=== PATIENT | male | born 1995 | race American Indian/Alaskan Native ===

== ENCOUNTER 2016-11-28 22:14 | Emergency (ER) | payer SELFPAY ==
[2016-11-28 22:28] VITALS: BP 153/89
[2016-11-28] MEDS ORDERED: PROVENTIL IH ONE (23:03)
== END 2016-11-29 06:52 | disposition left against medical advice (07) ==
LOC: ED 22:14
DX: J45.909 Unspecified asthma, uncomplicated (principal); Z53.21 Procedure and treatment not carried out due to patient leaving prior to being seen by health care provider
CPT/HCPCS: 93005; 93010; 94640

== ENCOUNTER 2016-11-29 11:09 | Emergency (ER) | payer SELFPAY ==
[2016-11-29 11:51] VITALS: BP 135/90
--- NOTE | 2016-11-29 14:01 | Emergency Department Report ---
ED General Adult HPI - General Chief complaint: Adult Asthma Stated complaint: ASTHMA/WHEEZING Time Seen by Provider: 11/29/16 13:53 Source: patient, RN notes reviewed Mode of arrival: Ambulatory Limitations: No Limitations - History of Present Illness Initial comments: PT states he has had asthma exacerbation x 2 days. PT states he came to ED last night and left after getting nebulizer treatment because he felt better. PT states he has a rescue inhaler at home but he still feels tight after using it. PT asking for an RX for Prednisone. PT has had previous admissions for asthma but denies previous intubations MD Complaint: asthma -: Gradual Location: chest Associated Symptoms: cough. denies: fever/chills, nausea/vomiting - Related Data Previous Rx's Medication Instructions Recorded Last Taken Type Albuterol Sulfate [Ventolin HFA] 2 puff IH Q4H PRN #1 hfa.aer.ad 11/29/16 Unknown Rx Prednisone [predniSONE 5 mg (6-Day 5 mg PO .TAPER #1 tab.ds.pk 11/29/16 Unknown Rx Pack, 21 Tabs)] Allergies Allergy/AdvReac Type Severity Reaction Status Date / Time bee pollen AdvReac Unknown Verified 11/29/16 11:51 ED Review of Systems ROS: Stated complaint: ASTHMA/WHEEZING Other details as noted in HPI Comment: All other systems reviewed and negative ENT: denies: throat pain Respiratory: cough, shortness of breath (improved last night after neb but still feels tight ), wheezing Gastrointestinal: denies: nausea, vomiting ED Past Medical Hx - Past Medical History Previous Medical History?: Yes Hx Asthma: Yes - Social History Smoking Status: Never Smoker Substance Use Type: Prescribed - Medications Home Medications: Home Medications Medication Instructions Recorded Confirmed Last Taken Type Albuterol Sulfate [Ventolin HFA] 2 puff IH Q4H PRN #1 hfa.aer.ad 11/29/16 Unknown Rx Prednisone [predniSONE 5 mg (6-Day 5 mg PO .TAPER #1 tab.ds.pk 11/29/16 Unknown Rx Pack, 21 Tabs)] ED Physical Exam - General Limitations: No Limitations General appearance: alert, in no apparent distress - Head Head exam: Present: atraumatic, normocephalic - Eye Eye exam: Present: normal appearance. Absent: conjunctival injection - ENT ENT exam: Present: normal exam, normal orophraynx, mucous membranes moist, TM's normal bilaterally, normal external ear exam - Neck Neck exam: Present: normal inspection, full ROM. Absent: lymphadenopathy - Respiratory Respiratory exam: Present: normal lung sounds bilaterally. Absent: respiratory distress, rhonchi, accessory muscle use, decreased breath sounds - Cardiovascular Cardiovascular Exam: Present: regular rate, normal rhythm, normal heart sounds - Extremities Exam Extremities exam: Present: normal inspection - Back Exam Back exam: Present: normal inspection, full ROM. Absent: tenderness, CVA tenderness (R), CVA tenderness (L) - Neurological Exam Neurological exam: Present: alert, oriented X3 - Psychiatric Psychiatric exam: Present: normal affect, normal mood - Skin Skin exam: Present: warm, dry, intact ED Course Vital Signs 11/29/16 11:47 Temperature 98.4 F Pulse Rate 55 L Respiratory 16 Rate Blood Pressure 135/90 O2 Sat by Pulse 100 Oximetry - Reevaluation(s) Reevaluation #1: 11/29/16 14:02 PT here for asthma exacerbation. PT not actively wheezing or sob. PT stable for outpt follow up - Pulse Oximetry Interpretation Digit-Finger Initial Pulse Oximetry Readin Actions Taken: none ED Medical Decision Making - Differential Diagnosis wheezing, asthma Critical care attestation.: If time is entered above; I have spent that time in minutes in the direct care of this critically ill patient, excluding procedure time. ED Disposition Clinical Impression: Asthma exacerbation, mild Disposition: DISCHARGED TO HOME OR SELFCARE Is pt being admited?: No Does the pt Need Aspirin: No Condition: Stable Instructions: Asthma (ED) Referrals: PRIMARY MD COLE [Primary Care Provider] - 3-5 Days LEDA BLAIR MD [Staff Physician] - 3-5 Days Forms: Work/School Release Form(ED) Time of Disposition: 14:04
== END 2016-11-29 14:32 | disposition home or self-care (01) ==
LOC: ED 11:09
DX: J45.901 Unspecified asthma with (acute) exacerbation (principal); Z91.09 Other allergy status, other than to drugs and biological substances
CPT/HCPCS: 99282

== ENCOUNTER 2016-12-25 08:25 | Emergency (ER) | payer SELFPAY ==
[2016-12-25] MEDS ORDERED: CLARITIN PO ONE (08:51)
[2016-12-25] MEDS ORDERED: DELTASONE PO ONE (08:51)
--- NOTE | 2016-12-25 08:55 | Emergency Department Report ---
HPI - General Chief Complaint: Adult Asthma Time Seen by Provider: 12/25/16 08:43 - HPI HPI: 21-year-old female with a history of asthma presents to ED stating he's had some wheezing and needs a refill on his asthma medications. Patient states his asthma flareups usually happen around theses into to the pollen allergies. Patient states he is out of his medication and needs a refill. Patient denies fever assess chills/nausea/vomiting/coughing/chest pain/ shortness of breath/dizziness or any other problems. ED Past Medical Hx - Past Medical History Previous Medical History?: Yes Hx Asthma: Yes - Surgical History Past Surgical History?: No - Social History Smoking Status: Never Smoker Substance Use Type: Prescribed, Other - Medications Home Medications: Home Medications Medication Instructions Recorded Confirmed Last Taken Type Albuterol Sulfate [Ventolin HFA] 2 puff IH Q4H PRN #1 hfa.aer.ad 12/25/16 Unknown Rx Cetirizine HCl [ZyrTEC] 10 mg PO DAILY #30 tab.rapdis 12/25/16 Unknown Rx Prednisone [predniSONE 5 mg (6-Day 5 mg PO .TAPER #1 tab.ds.pk 12/25/16 Unknown Rx Pack, 21 Tabs)] ED Review of Systems ROS: Stated complaint: CHEST PRESSURE /WEEZING/ASTHMA Other details as noted in HPI Constitutional: denies: chills, fever Eyes: denies: eye pain, eye discharge, vision change ENT: denies: ear pain, throat pain, dental pain, hearing loss Respiratory: denies: cough, shortness of breath, wheezing Cardiovascular: denies: chest pain, palpitations Endocrine: no symptoms reported. denies: flushing Gastrointestinal: denies: abdominal pain, nausea, vomiting, diarrhea, constipation, hematemesis Genitourinary: denies: urgency, dysuria Musculoskeletal: denies: back pain, joint swelling, arthralgia Skin: denies: rash, lesions, change in color, pruritus Neurological: denies: headache, weakness, numbness, paresthesias, confusion Psychiatric: denies: anxiety, depression Hematological/Lymphatic: denies: easy bleeding, easy bruising Physical Exam - Physical Exam Vital Signs: Vital Signs 12/25/16 08:33 Temperature 97.8 F Pulse Rate 70 Respiratory 18 Rate Blood Pressure 130/91 O2 Sat by Pulse 100 Oximetry Physical Exam: GENERAL: Alert and oriented x3, no apparent distress, Normal Gait, atraumatic. HEAD: Head is normocephalic and a-traumatic. NOSE: Nose symetrical, Nontender,Nares appeared normal. MOUTH:Mouth is well hydrated and without lesions. Patent airways. NECK: Supple. Non edematous, No carotid bruits. No lymphadenopathy or thyromegaly. LUNGS: Symetrical with respiration, mild expiratory wheezing heard bilaterally, no rales or crackles, CTAB. No use of java application developer muscles. Patient is not in respiratory distress. HEART: S1, S2 present, regular rate and rhythm without murmur, no rubs, no gallops. ABDOMEN: No organomegaly was noted,Positive bowel sounds, soft, and non- distended. Nontender to palpation on all Quadrants, NO CVA tenderness EXTREMITIES/MUSCULOSKELETAL: No cyanosis, clubbing, rash, lesions or edema. SKIN: Warm and dry, No lesions, No ulceration or induration present. ED Course Vital Signs 12/25/16 08:33 Temperature 97.8 F Pulse Rate 70 Respiratory 18 Rate Blood Pressure 130/91 O2 Sat by Pulse 100 Oximetry ED Medical Decision Making - Medical Decision Making 21-year-old male presents to the ED for indication refill. ED course: Patient received 60 mg of prednisone ED. Patient is alert and oriented 3. Vital signs are stable. Patient is satting at 100% She is in no acute over sensory distress. Discussed the patient will fill his medication and he needs to follow-up with primary care physician. Discussed the patient will follow-up as referred. Critical care attestation.: If time is entered above; I have spent that time in minutes in the direct care of this critically ill patient, excluding procedure time. ED Disposition Clinical Impression: Asthma due to environmental allergies, History of asthma Disposition: DISCHARGED TO HOME OR SELFCARE Is pt being admited?: No Does the pt Need Aspirin: No Condition: Stable Instructions: Asthma (ED), Reactive Airways Disease (ED) Prescriptions: Albuterol Sulfate [Ventolin HFA] 2 puff IH Q4H PRN #1 hfa.aer.ad PRN Reason: Shortness Of Breath Cetirizine HCl [ZyrTEC] 10 mg PO DAILY #30 tab.rapdis Prednisone [predniSONE 5 mg (6-Day Pack, 21 Tabs)] 5 mg PO .TAPER #1 tab.ds.pk Referrals: PRIMARY CARE, [Primary Care Provider] - 3-5 Days LEO BO MD [Referring] - 3-5 Days LEONELA VIRGEN MD [Referring] - 3-5 Days [facility] [Outside] - 3-5 Days [facility] [Outside] - 3-5 Days Forms: Work/School Release Form(ED) Time of Disposition: 09:01
[2016-12-25 09:14] VITALS: BP 126/86
== END 2016-12-25 09:13 | disposition home or self-care (01) ==
LOC: ED 08:25
DX: J45.909 Unspecified asthma, uncomplicated (principal)
CPT/HCPCS: 99282; J7512

== ENCOUNTER 2017-10-29 18:34 | Emergency (ER) | payer SELFPAY ==
[2017-10-29] MEDS ORDERED: TYLENOL PO ONE (18:46)
[2017-10-29] MEDS ORDERED: DUONEB *Not for PRN Use IH ONE ×3 (18:46→22:52)
[2017-10-29] MEDS ORDERED: DELTASONE PO ONE (18:46)
[2017-10-29] MEDS ORDERED: DELTASONE ONE (18:47)
[2017-10-29] MEDS ORDERED: TYLENOL ONE (18:47)
[2017-10-29] MEDS ORDERED: TESSALON PERLES PO ONE (22:10)
[2017-10-29] MEDS ORDERED: MOTRIN PO ONE (22:10)
--- NOTE | 2017-10-29 22:58 | XRay Report ---
FINAL REPORT PROCEDURE: XR CHEST ROUTINE 2V TECHNIQUE: PA and lateral chest radiographs were obtained. CPT 35014 HISTORY: cough COMPARISON: No prior studies are available for comparison. FINDINGS: Heart: Normal size. Mediastinum/Vessels: Normal. Lungs/Pleural space: Normal. Bony thorax: No acute osseous abnormality. Other: IMPRESSION: Negative examination.
--- NOTE | 2017-10-29 23:21 | Emergency Department Report ---
ED Asthma HPI - General Chief Complaint: Adult Asthma Stated Complaint: ASTHMA Time Seen by Provider: 10/29/17 22:06 Source: patient Mode of arrival: Ambulatory Limitations: No Limitations - History of Present Illness Initial Comments: This is a 22-year-old male nontoxic, well nourished in appearance, no acute signs of distress presents to the ED with c/o of wheezing and "asthma exacerbation" x3 days. Patient denies any cough, chest pain, shortness of breath , fever, chills, nausea, vomiting, headache, stiff neck, abdominal pain, numbness or tingling. She denies taking anything for asthma exacerbation. Patient stated as allergies to pollen. Denies any recent travels, long car rides, recent hospital stays. Patient denies any calf pain or calf tenderness. Past medical history includes asthma. MD Complaint: "asthma attack", wheezing -: days(s) (3) Asthma History: childhood onset Severity: mild Context: none known Associated Symptoms: none - Related Data Current Asthma Therapy: none Previous Rx's Medication Instructions Recorded Last Taken Type Albuterol Sulfate [Ventolin HFA] 2 puff IH Q4H PRN #1 hfa.aer.ad 12/25/16 Unknown Rx Cetirizine HCl [ZyrTEC] 10 mg PO DAILY #30 tab.rapdis 12/25/16 Unknown Rx Prednisone [predniSONE 5 mg (6-Day 5 mg PO .TAPER #1 tab.ds.pk 12/25/16 Unknown Rx Pack, 21 Tabs)] ALBUTEROL Inhaler [ProAir HFA 2 puff IH QID PRN #1 inhalation 10/29/17 Unknown Rx Inhaler] predniSONE [Deltasone] 40 mg PO QDAY #5 tab 10/29/17 Unknown Rx Allergies Allergy/AdvReac Type Severity Reaction Status Date / Time pollen extracts Allergy Shortness Verified 10/29/17 18:39 of Breath ED Review of Systems ROS: Stated complaint: ASTHMA Other details as noted in HPI Constitutional: denies: chills, fever Eyes: denies: eye pain, eye discharge, vision change ENT: denies: ear pain, throat pain Respiratory: wheezing. denies: cough, shortness of breath Cardiovascular: denies: chest pain, palpitations Endocrine: no symptoms reported Gastrointestinal: denies: abdominal pain, nausea, diarrhea Genitourinary: denies: urgency, dysuria Musculoskeletal: denies: back pain, joint swelling, arthralgia Skin: denies: rash, lesions Neurological: denies: headache, weakness, paresthesias Psychiatric: denies: anxiety, depression Hematological/Lymphatic: denies: easy bleeding, easy bruising ED Past Medical Hx - Past Medical History Previous Medical History?: Yes Hx Asthma: Yes - Surgical History Past Surgical History?: No - Social History Smoking Status: Never Smoker Substance Use Type: None - Medications Home Medications: Home Medications Medication Instructions Recorded Confirmed Last Taken Type Albuterol Sulfate [Ventolin HFA] 2 puff IH Q4H PRN #1 hfa.aer.ad 12/25/16 Unknown Rx Cetirizine HCl [ZyrTEC] 10 mg PO DAILY #30 tab.rapdis 12/25/16 Unknown Rx Prednisone [predniSONE 5 mg (6-Day 5 mg PO .TAPER #1 tab.ds.pk 12/25/16 Unknown Rx Pack, 21 Tabs)] ALBUTEROL Inhaler [ProAir HFA 2 puff IH QID PRN #1 inhalation 10/29/17 Unknown Rx Inhaler] predniSONE [Deltasone] 40 mg PO QDAY #5 tab 10/29/17 Unknown Rx ED Physical Exam - General Limitations: No Limitations General appearance: alert, in no apparent distress - Head Head exam: Present: atraumatic, normocephalic - Eye Eye exam: Present: normal appearance, PERRL, EOMI Pupils: Present: normal accommodation - ENT ENT exam: Present: normal exam, normal orophraynx, mucous membranes moist, TM's normal bilaterally, normal external ear exam - Neck Neck exam: Present: normal inspection, full ROM. Absent: tenderness, meningismus, lymphadenopathy, thyromegaly - Respiratory Respiratory exam: Present: normal lung sounds bilaterally, wheezes (bilateral upper and lower lobes). Absent: respiratory distress, rales, rhonchi, stridor, chest wall tenderness, accessory muscle use, decreased breath sounds, prolonged expiratory - Cardiovascular Cardiovascular Exam: Present: regular rate, normal rhythm, normal heart sounds. Absent: irregular rhythm, systolic murmur, diastolic murmur, rubs, gallop - GI/Abdominal GI/Abdominal exam: Present: soft, normal bowel sounds. Absent: distended, tenderness, guarding, rebound, rigid, diminished bowel sounds - Rectal Rectal exam: Present: deferred - Extremities Exam Extremities exam: Present: normal inspection, full ROM, normal capillary refill. Absent: tenderness, pedal edema, joint swelling, calf tenderness - Back Exam Back exam: Present: normal inspection, full ROM. Absent: tenderness, CVA tenderness (R), CVA tenderness (L), muscle spasm, paraspinal tenderness, vertebral tenderness, rash noted - Neurological Exam Neurological exam: Present: alert, oriented X3, CN II-XII intact, normal gait, reflexes normal - Psychiatric Psychiatric exam: Present: normal affect, normal mood - Skin Skin exam: Present: warm, dry, intact, normal color. Absent: rash ED Course Vital Signs 10/29/17 10/29/17 18:39 22:40 Temperature 99.8 F H Pulse Rate 118 H Respiratory 20 18 Rate Blood Pressure 120/83 O2 Sat by Pulse 96 Oximetry - Reevaluation(s) Reevaluation #1: 10/29/17 23:21 Patient is speaking in full sentences with no signs of distress noted. Reevaluation #2: 10/29/17 23:24 Post eval of medical treatment: No wheezing noted. Patient is talking with no signs of distress. ED Medical Decision Making - Medical Decision Making This is a 22-year-old male that presents with asthma exacerbation. Patient is stable and was examined by me. Chest x-ray has been obtained and dictated the radiologist with normal exam. Patient is notified of x-ray results neck was noted by the patient. Patient received DuoNeb and prednisone prior to interview which patient states symptoms of wheezing has subsided. Post medical treatment and assessment; wheezing has subsided. Patient is discharged with albuterol, prednisone. Vitals signs stable prior to discharge. Patient was instructed Follow-up with a primary care doctor in 3-5 days or if symptoms worsen and continue return to emergency room as soon as possible. At time of discharge, the patient does not seem toxic or ill in appearance. No acute signs of distress noted. Patient agrees to discharge treatment plan of care. No further questions noted by the patient. Critical care attestation.: If time is entered above; I have spent that time in minutes in the direct care of this critically ill patient, excluding procedure time. ED Disposition Clinical Impression: Asthma exacerbation Qualifiers: Asthma severity: mild Asthma persistence: unspecified Qualified Code(s): J45.901 - Unspecified asthma with (acute) exacerbation Disposition: DC-01 TO HOME OR SELFCARE Is pt being admited?: No Does the pt Need Aspirin: No Condition: Stable Instructions: Asthma (ED), Prednisone (By mouth), Albuterol (By breathing) Additional Instructions: Follow-up with a primary care doctor in 3-5 days or if symptoms worsen and continue return to emergency room as soon as possible. Prescriptions: ALBUTEROL Inhaler [ProAir HFA Inhaler] 2 puff IH QID PRN #1 inhalation PRN Reason: Shortness Of Breath predniSONE [Deltasone] 40 mg PO QDAY #5 tab Referrals: PRIMARY CARE, [Primary Care Provider] - 3-5 Days ALEKSANDAR BANKS MD [Staff Physician] - 3-5 Days [facility] [Outside] - 3-5 Days [facility] [Outside] - 3-5 Days Forms: Work/School Release Form(ED)
[2017-10-29 23:24] VITALS: BP 111/71
== END 2017-10-29 23:55 | disposition home or self-care (01) ==
LOC: ED 18:34
DX: J45.901 Unspecified asthma with (acute) exacerbation (principal)
CPT/HCPCS: 71046; 94640; 99283; J7512

== ENCOUNTER 2017-12-24 14:25 | Emergency (ER) | payer SELFPAY ==
[2017-12-24 14:32] VITALS: BP 134/87
--- NOTE | 2017-12-24 19:16 | Emergency Department Report ---
ED Allergic Reaction HPI - General Chief complaint: Upper Respiratory Infection Stated complaint: ALLERGIES AND WORK NOTE Time Seen by Provider: 12/24/17 18:50 Source: patient Mode of arrival: Ambulatory Limitations: No Limitations - History of Present Illness Initial Comments: Is a 22-year-old -[place] male who is having allergic reaction to pollen. Patient states he suffers from seasonal allergies. 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 MD Complaint: allergic reaction - Related Data Previous Rx's Medication Instructions Recorded Last Taken Type Albuterol Sulfate [Ventolin HFA] 2 puff IH Q4H PRN #1 hfa.aer.ad 12/25/16 Unknown Rx Cetirizine HCl [ZyrTEC] 10 mg PO DAILY #30 tab.rapdis 12/25/16 Unknown Rx Prednisone [predniSONE 5 mg (6-Day 5 mg PO .TAPER #1 tab.ds.pk 12/25/16 Unknown Rx Pack, 21 Tabs)] ALBUTEROL Inhaler [ProAir HFA 2 puff IH QID PRN #1 inhalation 10/29/17 Unknown Rx Inhaler] predniSONE [Deltasone] 40 mg PO QDAY #5 tab 10/29/17 Unknown Rx Allergies Allergy/AdvReac Type Severity Reaction Status Date / Time pollen extracts Allergy Shortness Verified 12/24/17 14:29 of Breath ED Review of Systems ROS: Stated complaint: ALLERGIES AND WORK NOTE Other details as noted in HPI Comment: All other systems reviewed and negative ED Past Medical Hx - Past Medical History Hx Asthma: Yes - Social History Smoking Status: Never Smoker Substance Use Type: None - Medications Home Medications: Home Medications Medication Instructions Recorded Confirmed Last Taken Type Albuterol Sulfate [Ventolin HFA] 2 puff IH Q4H PRN #1 hfa.aer.ad 12/25/16 Unknown Rx Cetirizine HCl [ZyrTEC] 10 mg PO DAILY #30 tab.rapdis 12/25/16 Unknown Rx Prednisone [predniSONE 5 mg (6-Day 5 mg PO .TAPER #1 tab.ds.pk 12/25/16 Unknown Rx Pack, 21 Tabs)] ALBUTEROL Inhaler [ProAir HFA 2 puff IH QID PRN #1 inhalation 10/29/17 Unknown Rx Inhaler] predniSONE [Deltasone] 40 mg PO QDAY #5 tab 10/29/17 Unknown Rx ED Physical Exam - General Limitations: No Limitations General appearance: alert, in no apparent distress - Head Head exam: Present: atraumatic, normocephalic - Eye Eye exam: Present: conjunctival injection - ENT ENT exam: Present: mucous membranes moist - Neck Neck exam: Present: normal inspection - Respiratory Respiratory exam: Present: normal lung sounds bilaterally. Absent: respiratory distress, wheezes, rales, rhonchi - Cardiovascular Cardiovascular Exam: Present: regular rate, normal rhythm. Absent: systolic murmur, diastolic murmur, rubs, gallop - GI/Abdominal GI/Abdominal exam: Present: soft, normal bowel sounds - Rectal Rectal exam: Present: deferred - Extremities Exam Extremities exam: Present: normal inspection - Back Exam Back exam: Present: normal inspection - Neurological Exam Neurological exam: Present: alert, oriented X3 - Psychiatric Psychiatric exam: Present: normal affect, normal mood - Skin Skin exam: Present: warm, dry, intact, normal color. Absent: rash ED Course Vital Signs 12/24/17 14:29 Temperature 98.8 F Pulse Rate 99 H Respiratory 18 Rate Blood Pressure 134/87 O2 Sat by Pulse 100 Oximetry ED Medical Decision Making - Medical Decision Making Patient did not medical emergency and has been given advise on [id number] meds. Critical care attestation.: If time is entered above; I have spent that time in minutes in the direct care of this critically ill patient, excluding procedure time. ED Disposition Clinical Impression: Allergic rhinitis Qualifiers: Allergic rhinitis trigger: pollen Allergic rhinitis seasonality: seasonal Qualified Code(s): J30.1 - Allergic rhinitis due to pollen Disposition: MED SCREENING EXAM-LEFT Is pt being admited?: No Condition: Good Referrals: VASILIY HUBBARD MD [Referring] - 3-5 Days
== END 2017-12-24 19:24 | disposition left against medical advice (07) ==
LOC: ED 14:25
DX: J30.9 Allergic rhinitis, unspecified (principal); Z88.8 Allergy status to other drugs, medicaments and biological substances
CPT/HCPCS: 99282

== ENCOUNTER 2018-01-05 21:55 | Emergency (ER) | payer SELFPAY ==
[2018-01-05 22:23] VITALS: BP 131/85
[2018-01-05] MEDS ORDERED: DUONEB *Not for PRN Use IH ONE ×2 (22:51→23:21)
[2018-01-05] MEDS ORDERED: DELTASONE PO ONE (23:21)
--- NOTE | 2018-01-06 02:37 | Emergency Department Report ---
Minor Respiratory - HPI Chief Complaint: Adult Asthma Stated Complaint: ASTHMA,CHEST PAIN Time Seen by Provider: 01/06/18 02:25 Duration: Today Pain Location: Other (no pain) Minor Respiratory: Yes Rhinorrhea (nasal congestion), Yes Able to Tolerate Fluids, Yes Cough (dry cough), No Sore Throat, No Ear Pain, No Sick Contacts, No Hemoptysis, No Chest Pain, No Shortness of Breath, No Fever (chills) Other History: Patient complains cerebrovascular asthma today. He reports that he does not have albuterol inhaler and he won't be able to get in until Friday when he gets pain. He said he is having coughing and wheezing but denies any shortness of breath or chest pain. He reports that since the pollen has been crying he's been having runny nose and congestion and has been taking over-the- counter medication which is not helping. Patient does not have a primary care physician. Denies any nausea or vomiting. He said he feels hot and cold sometimes but no fever. ED Review of Systems ROS: Stated complaint: ASTHMA,CHEST PAIN Other details as noted in HPI Comment: All other systems reviewed and negative Constitutional: chills. denies: fever Eyes: denies: eye pain, eye discharge ENT: congestion. denies: ear pain, throat pain, epistaxis Respiratory: cough, wheezing. denies: orthopnea, shortness of breath, SOB with exertion, SOB at rest, stridor Cardiovascular: denies: chest pain, palpitations, dyspnea on exertion, orthopnea , edema, syncope, paroxysmal nocturnal dyspnea Gastrointestinal: denies: abdominal pain, nausea, vomiting Musculoskeletal: denies: back pain, joint swelling, arthralgia, myalgia Skin: denies: rash Neurological: denies: headache ED Past Medical Hx - Past Medical History Previous Medical History?: Yes Hx Asthma: Yes - Surgical History Past Surgical History?: No - Family History Family history: no significant - Social History Smoking Status: Never Smoker Substance Use Type: None - Medications Home Medications: Home Medications Medication Instructions Recorded Confirmed Last Taken Type Prednisone [predniSONE 5 mg (6-Day 5 mg PO .TAPER #1 tab.ds.pk 12/25/16 Unknown Rx Pack, 21 Tabs)] ALBUTEROL Inhaler [ProAir HFA 2 puff IH QID PRN #1 inhalation 10/29/17 Unknown Rx Inhaler] Acetaminophen 500 mg PO Q6H PRN #20 tablet 01/06/18 Unknown Rx Albuterol Sulfate [Ventolin HFA] 2 puff IH Q6H PRN #1 hfa.aer.ad 01/06/18 Unknown Rx Amoxicillin/K Clav Tab [Augmentin 1 tab PO Q12HR 10 Days #20 tab 01/06/18 Unknown Rx 875 mg] Cetirizine HCl [ZyrTEC] 10 mg PO DAILY 14 Days #14 01/06/18 Unknown Rx tab.rapdis predniSONE [Deltasone] 40 mg PO QDAY 5 Days #10 tab 01/06/18 Unknown Rx Minor Respiratory Exam - Exam General: Vital signs noted. No distress. Alert and acting appropriately. This is a 22-year-old male well-nourished well-developed in no acute distress. HEENT: Yes Moist Mucous Membranes, Yes Rhinorrhea (nasal congestion), No Pharyngeal Erythema, No Pharyngeal Exudates, No Conjuctival Injection, No Frontal Tenderness, No Maxillary Tenderness Ear: Neither TM Bulge (bilateral TM congested), Neither TM Erythema, Neither EAC Pain, Neither EAC Discharge Neck: Yes Supple (full range of motion, no C-spine tenderness), No Adenopathy Lungs: Yes Good Air Exchange, Yes Wheezes (scattered wheezes and upper lung pruitt), Yes Cough (dry cough), No Ronchi, No Stridor, No Labored Respirations, No Retractions, No Use of Accessory Muscles, No Other Abnormal Lung Sounds Heart: Yes Regular (tachycardic at 105), No Murmur Abdomen: Yes Normal Bowel Sounds (in all quadrants), No Tenderness (on tended to palpate in all quadrants,), No Peritoneal Signs Skin: No Rash, No Edema Neurologic: Alert and oriented, no deficits. Alert and oriented 3, speech is clear and fluid. Gait is normal Musculoskeletal: Unremarkable. No clubbing, cyanosis or edema. +2 pulses to all extremities and no neurovascular compromise ED Course Vital Signs 01/05/18 01/05/18 22:12 23:15 Temperature 100.0 F H 100 F H Pulse Rate 105 H 98 H Respiratory 18 16 Rate Blood Pressure 131/85 131/85 O2 Sat by Pulse 96 96 Oximetry Vital Signs 01/05/18 01/05/18 01/06/18 22:12 23:15 03:17 Temperature 100.0 F H 100 F H Pulse Rate 105 H 98 H 77 Respiratory 18 16 16 Rate Blood Pressure 131/85 131/85 O2 Sat by Pulse 96 96 100 Oximetry - Reevaluation(s) Reevaluation #1: 01/06/18 03:06 Patient given DuoNeb 1 nebulizer treatment in emergency room. He received Tylenol 975 mg by mouth. Temperature is now 100. Pulse ox after treatment is at 100% in room air. ED Medical Decision Making - Medical Decision Making ED course: He reports that he has an asthma flare up today and he is out of his albuterol inhaler and cannot afford one until he gets paid on Friday. He reports cough and wheezing but this was proceeded by nasal congestion and runny nose use of pollen the patient. [id number] medication did not help. Patient was given DuoNeb 1 nebulizer treatment and that was also some milligram by mouth in triage. Upon re-evaluation, patient lung sounds are clear. He said he feels a lot better. I discussed the patient since he does not have a primary care he needs to follow up at [facility] and I gave him fly her with information. I discussed with him he needs someone to manage his chronic asthma. Patient discharged home in stable condition with prescription for albuterol and was given good Rx drug card and also prednisone. I told him he had a low-grade fever so he can take some Tylenol plain per dosing chart guideline and increase his fluid intake. He voiced understanding and discharged home in stable condition Critical care attestation.: If time is entered above; I have spent that time in minutes in the direct care of this critically ill patient, excluding procedure time. ED Disposition Clinical Impression: Upper respiratory infection with cough and congestion, Fever chills Asthma exacerbation Qualifiers: Asthma severity: mild Asthma persistence: intermittent Qualified Code(s): J45.21 - Mild intermittent asthma with (acute) exacerbation Disposition: -01 TO HOME OR SELFCARE Is pt being admited?: No Does the pt Need Aspirin: No Condition: Stable Instructions: Asthma (ED), Fever in Adults (ED), Acute Cough (ED), Upper Respiratory Infection (ED) Additional Instructions: Please take antibiotic as prescribed Use albuterol inhaler every 6 hours 2 days and then as needed. Take Tylenol plain for fever every 6 hours 2 days and then as needed Increase her fluid intake to 2-3 L of water daily. Please follow up at some outside Medical Center as discussed ,this will be her primary care to manage her asthma If you have symptoms return, please return to the emergency room Take Zyrtec and Flonase to relieve nasal congestion Take prednisone as ordered Prescriptions: Acetaminophen 500 mg PO Q6H PRN #20 tablet PRN Reason: Fever Albuterol Sulfate [Ventolin HFA] 2 puff IH Q6H PRN #1 hfa.aer.ad PRN Reason: cough and wheezing Amoxicillin/K Clav Tab [Augmentin 875 mg] 1 tab PO Q12HR 10 Days #20 tab Cetirizine HCl [ZyrTEC] 10 mg PO DAILY 14 Days #14 tab.rapdis predniSONE [Deltasone] 40 mg PO QDAY 5 Days #10 tab Referrals: [facility] [Outside] - 01/08/18 Forms: Work/School Release Form(ED)
[2018-01-06] MEDS ORDERED: TYLENOL PO ONE (02:38)
== END 2018-01-06 03:34 | disposition home or self-care (01) ==
LOC: ED 21:55
DX: J45.21 Mild intermittent asthma with (acute) exacerbation (principal); J06.9 Acute upper respiratory infection, unspecified
CPT/HCPCS: 99283; J7512

== ENCOUNTER 2018-01-19 23:53 | Emergency (ER) | payer SELFPAY ==
[2018-01-20 00:22] VITALS: BP 137/90
[2018-01-20] MEDS ORDERED: DUONEB *Not for PRN Use IH ONE ×2 (00:23→01:36)
--- NOTE | 2018-01-20 01:42 | Emergency Department Report ---
Minor Respiratory - HPI Chief Complaint: Dyspnea/Respdistress Stated Complaint: SOB Time Seen by Provider: 01/20/18 01:02 Duration: Today Pain Location: Chest (chest tightness) Severity: moderate Minor Respiratory: Yes Able to Tolerate Fluids, Yes Cough, Yes Chest Pain ( chest tightness with cough), Yes Shortness of Breath, No Rhinorrhea, No Sore Throat, No Ear Pain, No Sick Contacts, No Hemoptysis, No Fever Other History: This is a 23 y.o. male that presents with chest tightness, wheezing, and cough that started today when he got off work. Patient states symptoms started while at work but increased when he left work. He was coughing and felt tightness with each cough. He took 2 prednisone pills around 1730 and continued working. When he left symptoms increased and started wheezing. States last albuterol inhaler was prescribed in ER and he ran out last month. He has not established PCP and unable to f/u. Denies fever, rhinorrhea, and sinus pressure. ED Review of Systems ROS: Stated complaint: SOB Other details as noted in HPI Constitutional: denies: chills, fever ENT: denies: ear pain, throat pain, congestion Respiratory: cough, shortness of breath, SOB with exertion, wheezing Cardiovascular: chest pain (tightness with cough). denies: palpitations Gastrointestinal: denies: abdominal pain, nausea, vomiting, diarrhea Neurological: denies: headache, weakness, numbness, paresthesias Psychiatric: denies: anxiety, depression ED Past Medical Hx - Past Medical History Previous Medical History?: Yes Hx Asthma: Yes - Surgical History Past Surgical History?: No - Social History Smoking Status: Never Smoker Substance Use Type: None - Medications Home Medications: Home Medications Medication Instructions Recorded Confirmed Last Taken Type Prednisone [predniSONE 5 mg (6-Day 5 mg PO .TAPER #1 tab.ds.pk 12/25/16 Unknown Rx Pack, 21 Tabs)] ALBUTEROL Inhaler [ProAir HFA 2 puff IH QID PRN #1 inhalation 10/29/17 Unknown Rx Inhaler] Acetaminophen 500 mg PO Q6H PRN #20 tablet 01/06/18 Unknown Rx Albuterol Sulfate [Ventolin HFA] 2 puff IH Q6H PRN #1 hfa.aer.ad 01/06/18 Unknown Rx Amoxicillin/K Clav Tab [Augmentin 1 tab PO Q12HR 10 Days #20 tab 01/06/18 Unknown Rx 875 mg] Cetirizine HCl [ZyrTEC] 10 mg PO DAILY 14 Days #14 01/06/18 Unknown Rx tab.rapdis predniSONE [Deltasone] 40 mg PO QDAY 5 Days #10 tab 01/06/18 Unknown Rx ALBUTEROL Inhaler [ProAir HFA 1 puff IH Q4-6H PRN #1 inha 01/20/18 Unknown Rx Inhaler] predniSONE [Deltasone] 40 mg PO QDAY #10 tab 01/20/18 Unknown Rx Minor Respiratory Exam - Exam General: Vital signs noted. No distress. Alert and acting appropriately. HEENT: Yes Moist Mucous Membranes, No Pharyngeal Erythema, No Pharyngeal Exudates, No Rhinorrhea, No Conjuctival Injection, No Frontal Tenderness, No Maxillary Tenderness Ear: Neither TM Bulge, Neither TM Erythema, Neither EAC Pain, Neither EAC Discharge Neck: Yes Supple, No Adenopathy Lungs: Yes Good Air Exchange, Yes Cough, No Wheezes, No Ronchi, No Stridor, No Labored Respirations, No Retractions, No Use of Accessory Muscles, No Other Abnormal Lung Sounds Heart: Yes Regular, No Murmur Abdomen: Yes Normal Bowel Sounds, No Tenderness, No Peritoneal Signs Skin: No Rash, No Edema Neurologic: Alert and oriented, no deficits. Musculoskeletal: Unremarkable. ED Course Vital Signs 01/20/18 01/20/18 00:00 00:18 Temperature 97.9 F 97.9 F Pulse Rate 74 73 Respiratory 18 18 Rate Blood Pressure 132/90 137/90 O2 Sat by Pulse 95 96 Oximetry ED Medical Decision Making - Medical Decision Making 23 y.o. male that presents with wheezing, chest tightness, and cough that started yesterday after work. History of Asthma. Noncompliant with medication. He ran out of albuterol inhaler last month. Patient examined by me and in slight distress. Vitals stable. Given duoneb treatment once. He took 2 prednisone 20 mg pills around 1730. Wheezes resolved on assessment. Asthma exacerbation, Start albuterol and prednisone 40 mg po daily x 5 days. Discharged home stable. Encouraged to f/u with [facility] for management of asthma. Return to work tomorrow. Critical care attestation.: If time is entered above; I have spent that time in minutes in the direct care of this critically ill patient, excluding procedure time. ED Disposition Clinical Impression: Asthma exacerbation Qualifiers: Asthma severity: mild Asthma persistence: intermittent Qualified Code(s): J45.21 - Mild intermittent asthma with (acute) exacerbation Disposition: TO HOME OR SELFCARE Is pt being admited?: No Does the pt Need Aspirin: No Condition: Stable Instructions: Asthma (ED) Additional Instructions: It is important to use inhaler or have active albuterol inhaler and avoiding asthma triggers. Complete full course of prednisone steroids as prescribed. Follow up with [facility] to establish primary care to manage asthma in 24-72 hours. Prescriptions: ALBUTEROL Inhaler [ProAir HFA Inhaler] 1 puff IH Q4-6H PRN #1 inha PRN Reason: Shortness Of Breath predniSONE [Deltasone] 40 mg PO QDAY #10 tab Referrals: [facility] [place] [facility] [place]] - 3-5 Days [facility] [Outside] - 3-5 Days [facility] [Outside] - 3-5 Days Forms: Work/School Release Form(ED) Time of Disposition: 01:47 Print Language: KINYARWANDA
== END 2018-01-20 01:55 | disposition home or self-care (01) ==
LOC: ED 23:53
DX: J45.901 Unspecified asthma with (acute) exacerbation (principal)
CPT/HCPCS: 99282

== ENCOUNTER 2020-11-06 10:08 | Emergency (ER) | payer OTHER ==
[2020-11-06 10:12] VITALS: BP 131/89
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
== END 2020-11-06 10:56 | disposition home or self-care (01) ==
LOC: ED 10:08
DX: S09.90XA Unspecified injury of head, initial encounter (principal); S29.012A Strain of muscle and tendon of back wall of thorax, initial encounter; J45.909 Unspecified asthma, uncomplicated; Z79.899 Other long term (current) drug therapy; Z88.8 Allergy status to other drugs, medicaments and biological substances; V49.49XA Driver injured in collision with other motor vehicles in traffic accident, initial encounter; Y93.89 Activity, other specified; Y92.410 Unspecified street and highway as the place of occurrence of the external cause; Y99.8 Other external cause status
CPT/HCPCS: 99282